=== PATIENT | female | born 1965 | race Caucasian/White ===

== ENCOUNTER → 2023-07-02 15:18 | Outpatient (REF) | payer BC, SELFPAY | LOC: HWRAD 15:18 | PROVIDERS: ATTENDING PHYSICIAN Family Medicine; REFERRING PHYSICIAN Internal Medicine Rheumatology | DX: Z12.31 Encounter for screening mammogram for malignant neoplasm of breast (principal); M81.0 Age-related osteoporosis without current pathological fracture | CPT/HCPCS: 77063; 77067; 77080 ==

== ENCOUNTER → 2023-10-07 15:43 | Outpatient (REF) | payer BC, SELFPAY | LOC: HWRAD 15:43 | PROVIDERS: ATTENDING PHYSICIAN Family Medicine | DX: R05.9 Cough, unspecified (principal) | CPT/HCPCS: 71046 ==

== ENCOUNTER → 2024-06-03 09:55 | Outpatient (REF) | payer BC, SELFPAY | LOC: HWRAD 09:55 | PROVIDERS: ATTENDING PHYSICIAN Family Medicine | DX: R06.00 Dyspnea, unspecified (principal) | CPT/HCPCS: 71046 ==

== ENCOUNTER 2024-10-15 01:24 | Emergency (ER) | payer BC, SELFPAY ==
[2024-10-15 01:27] VITALS: BP 122/78
[2024-10-15] MEDS: NSS 1000 IV (02:44)
[2024-10-15] MEDS: MORPHINE SULFATE 4 MG IV (02:52)
--- NOTE | 2024-10-15 02:53 | ED.GENMED ---
History of Present Illness
General
Chief Complaint: Abdominal Symptoms
Source: patient and spouse
Time Seen by Provider: 10/15/24 01:46
History of Present Illness
History of Present Illness:
This is a 59-year-old female who presents with left-sided abdominal pain. Patient states that earlier in the week she was treated with tizanidine for back spasms. She states she had woken up and had spasms in the right low back. She states that
over the last several weeks since taking a trip to [facility] she has had diarrhea followed by constipation followed by diarrhea and now feels constipated again. She feels some pressure like she has to have a bowel movement but has had pain. She
does report a history of diverticulitis. The patient is on medications for rheumatoid arthritis. states that she did have an outpatient CT scan. This was reviewed on the patient's phone which showed cholelithiasis but no other acute
process. Patient denies urinary symptoms. No melena or hematochezia. Has been trialing small dose of MiraLAX
Past History
Past History
ED Past Medical History: Hypercholesterolemia, Hyperthyroidism (Rheumatoid arthritis, kidney stones, irritable bowel syndrome, migraines, sciatica), Hypothyroidism, Psychiatric (anx/depression) and Other (Past history of kidney stones, history of
irritable bowel, migraine headache, sciatica, chronic low back pain)
ED Past Surgical History: Gynecological (Tubal ligation, endometrial ablation), Orthopedic (lumbar discectomy, lumbar spinal stimulator 06/28/2019), Tonsilectomy and Other (She also has a history of tubal ligation, and laser surgery of the cervix )
Patient has exhibited threatening behavior?: No
Social History
Tobacco: Non-smoker
Alcohol: None
Personal:
Living: with family
Employment: Employed
Family History
Family History: Other (Noncontributory)
Phy Exam
Physical Exam
Physical Exam:
CONSTITUTIONAL Patient alert and oriented to person, place and time. Well-appearing. Vital signs reviewed.
HEAD atraumatic, normocephalic.
EYES eyelids normal to inspection, Extraocular muscles intact, Conjunctiva normal, Sclera normal.
NECK normal range of motion, Trachea midline, no jugular venous distention.
RESPIRATORY CHEST No respiratory distress noted, Chest expansion equal, Bilateral breath sounds clear.
CARDIOVASCULAR regular rate and rhythm, Heart sounds normal.
ABDOMEN moderate left lower quadrant abdominal tenderness, Bowel sounds normal. No distention.
BACK normal inspection, no obvious deformities
UPPER EXTREMITY range of motion normal, Motor strength normal, no cyanosis, no edema.
LOWER EXTREMITY range of motion normal, Motor strength normal, no cyanosis, no edema.
NEURO Speech normal, No focal motor deficits, Jewett coma scale 15, Memory normal, Cranial Nerves intact to screening exam.
SKIN skin warm, dry, and normal in color.
Course
Orders/Labs/Results
Orders:
Orders
10/15/24 02:22
CT Abd/Pel (IV only)-DH only Urgent
Comment:
Reason For Exam: L abd pain
10/15/24 02:23
0.9% Sodium Chloride 1000 ml [Nss] 1,000 ml IV BOLUS
Morphine Sulfate 4 mg IV NOW STA
10/15/24 02:41
Complete Blood Count/With Diff Urgent
Comprehensive Metabolic Panel Urgent
10/15/24 02:56
Urinalysis Reflex To Culture Urgent
Date Specimen was Collected: 10/15/24
Time Specimen was Collected: 02:42
Urine Microscopic Reflex Cult Urgent
Abnormal Lab Results
10/15/24 10/15/24
02:41 02:56
WBC 13.1 H 10^3/uL
(4.8-10.8)
MPV 11.1 H fL
(7.4-10.4)
Abs Immat Gran (auto) 0.1 H 10^3/uL
(0-0.05)
Absolute Lymphs (auto) 5.3 H 10^3/uL
(1.2-3.4)
Absolute Monos (auto) 1.2 H 10^3/uL
(0.1-0.6)
BUN 4 L mg/dl
(7-17)
Glucose 114 H mg/dl
(70-99)
Total Bilirubin 1.6 H mg/dl
(0.2-1.3)
Urine Albumin (Reflex) 1+ A
(Neg - Trace)
10/15/24 02:41
10/15/24 02:41
Vital Signs
Initial and Last Documented VS:
Initial Vital Signs
Temp Pulse Resp BP Pulse Ox
99.5 F 94 16 122/78 97
10/15/24 01:27 10/15/24 01:27 10/15/24 01:27 10/15/24 01:27 10/15/24 01:27
Last Documented Vital Signs
Temp Pulse Resp BP Pulse Ox
99.5 F 94 16 124/70 95
10/15/24 01:27 10/15/24 01:27 10/15/24 01:27 10/15/24 04:13 10/15/24 04:45
MDM/Problems Addressed
Differential Diagnosis Includes:
Diverticulitis, colitis, constipation, Valstar
MDM/Problems Addressed:
Colitis
*Radiology
Radiology exam reviewed: radiology read reviewed
*Pulse Oximetry
Patient hypoxic: no
*Critical Care Note
Total Time (30-74mins, 75-104mins- exclusive of procedures): Not Applicable
Data Reviewed
Source: patient and spouse
Prescriptions/Medications Considered But Not Given:
Considered Levaquin and Flagyl if patient is allergic.
Patient Management
Escalation/DeEscalation of care consider admission/obs:
In light of her off-and-on diarrhea with recent travel and being slightly immunocompromise on rheumatoid treatment, cover with antibiotics. Okay for outpatient management.
ED Attending Note
-
Portions of this chart may have been created with voice recognition software.� Occasional wrong word or��sound alike� substitutions may have occurred due to the inherent limitations of voice recognition software.
Discharge Plan
Departure
Patient Disposition: Home (Routine Discharge)
Date of Disposition: 10/15/24
Time of Disposition: 05:15
Patient with high blood pressure during this ER visit?: No
Discharge Problem:
Colitis
Instructions: Colitis, Abdominal Pain
Prescriptions:
New
sulfamethoxazole-trimethoprim [Bactrim DS] 800-160 mg tablet
1 tab PO BID Qty: 20 0RF
metronidazole 500 mg tablet
500 mg PO TID Qty: 30 0RF
No Action
rosuvastatin 10 MG tablet
10 mg PO QPM
duloxetine 30 MG capsule,delayed release(DR/EC)
90 mg PO DAILY
Synthroid:
50 mcg PO DAILY
Patient Comments:
pt. does not know the dose.
tocilizumab [Actemra] 400 MG/20 ML solution
400 mg IV MONTHLY
Patient Comments:
on hold until PNA is resolved
albuterol sulfate [Proventil HFA] 90 MCG/PUFF HFA aerosol inhaler
1 puff inhalation Q4HPRN PRN (Reason: shortness of breath) Qty: 1 0RF
nystatin 5 ML suspension
5 ml PO QID Qty: 100 0RF
levalbuterol HCl 1.25 MG/3 ML solution for nebulization
1.25 mg inhalation R TID Qty: 1 0RF
levalbuterol HCl 1.25 MG/3 ML solution for nebulization
1.25 mg inhalation R Q6HPRN PRN (Reason: dyspnea, wheezing) Qty: 1 0RF
prednisone 10 MG tablet
10 mg PO DAILY Qty: 20 0RF
Rx Instructions:
4 tabs daily for 2 days, 3 tabs daily for 2 days, 2 tabs daily for 2 days, 1 tab daily for 2 days then stop.
oxycodone 5 MG tablet
5 mg PO Q4HPRN PRN (Reason: severe pain) Qty: 15 0RF
cyclobenzaprine 10 MG tablet
10 mg PO TIDPRN PRN (Reason: muscle spasms) Qty: 15 0RF
prednisone 10 MG tablet
10 mg PO .TAPER Qty: 30 0RF
Rx Instructions:
Take 40mg daily x3days, 30mg daily x3days,
20mg daily x3days, 10mg daily x3days.
prednisone 10 MG tablet
10 mg PO .TAPER Qty: 30 0RF
Rx Instructions:
Take 40mg daily x3days, 30mg daily x3days,
20mg daily x3days, 10mg daily x3days.
oxycodone 5 MG tablet
5 mg PO Q4HPRN PRN (Reason: pain) Qty: 10 0RF
oxycodone 5 MG tablet
5 mg PO Q4HPRN PRN (Reason: pain) Qty: 12 0RF
Referrals:
Tamara Real MD [Family Provider] -
Activity Restrictions/Additional Instructions:
Please see your doctor in the next 3 days for follow-up and reevaluation. If symptoms persist, follow-up with gastroenterology may be necessary. Return immediately for fevers, worsening pain, bloody stool or any other concerns
Interventions
Interventions:
*Risk Screen - Suicide Last Done: 10/15/24 01:27
*General Assessment Last Done: 10/15/24 02:59
*Neglect/Abuse Screening Last Done: 10/15/24 02:59
*ED- Fall Risk Assessment Last Done: 10/15/24 02:59
*ED COVID-19 Vaccine History Last Done: 10/15/24 02:59
HG-Itadpp-Xhduwyiqkx Assessment Last Done: 10/15/24 03:00
Discharge Date and Time
Print Language: ERITREAN
[2024-10-15 02:58] VITALS: BP 113/71
[2024-10-15 03:09] LABS: % Basophils 0.6 % (0-2); % Eosinophils 0.2 % (0-6); % Immature Granulocytes 0.5 % (0-0.5); % Lymphocytes 40.4 % (20.5-51.1); % Monocytes 9.2 % (1.7-9.3); % Neutrophils 49.1 % (42.2-75.2); Absolute Basophils 0.1 10^3/uL (0-0.2); Absolute Immature Granulocytes 0.1 10^3/uL (0-0.05); Absolute Lymphocytes 5.3 10^3/uL (1.2-3.4); Absolute Monocytes 1.2 10^3/uL (0.1-0.6); Absolute Neutrophils 6.4 10^3/uL (1.4-6.5); Hematocrit 44.3 % (37.0-47.0); Mean Corp Hgb Conc. 33.9 g/dL (33.0-37.0); Mean Corpuscular Hgb 30.9 pg (27.0-31.0); Mean Corpuscular Volume 91.3 fL (81.0-99.0); Mean Platelet Volume 11.1 fL (7.4-10.4); Nucleated Red Blood Cells % 0 %; Platelet Count 298 10^3/uL (130-400); Red Blood Cell Count 4.85 10^6/uL (4.20-5.40); Red Cell Dist. Width 11.9 % (11.5-14.5); White Blood Cell Count 13.1 10^3/uL (4.8-10.8)
[2024-10-15 03:12] LABS: Urine Albumin 1+ (Neg - Trace); Urine Bilirubin Negative (Negative); Urine Character Clear (Clear); Urine Color Yellow; Urine Glucose Negative (Negative); Urine Ketone Negative (Negative); Urine Leukocyte Negative (Negative); Urine Nitrite Negative (Negative); Urine Occult Blood Negative (Negative); Urine Urobilinogen Negative (Neg - 1+)
[2024-10-15 03:25] LABS: ALT (SGPT) 18 U/L (0-35); AST (SGOT) 26 U/L (14-36); Albumin 4.6 g/dl (3.5-5.0); Alkaline Phosphatase 68 U/L (38-126); Blood Urea Nitrogen 4 mg/dl (7-17); Calcium 9.5 mg/dl (8.4-10.2); Carbon Dioxide 27 mmol/L (22-30); Chloride 106 mmol/L (98-107); Glucose 114 mg/dl (70-99); Potassium 3.8 mmol/L (3.5-5.1); Sodium 142 mmol/L (135-145); Total Bilirubin 1.6 mg/dl (0.2-1.3); Total Protein 7.6 g/dl (6.3-8.2); eGFR > 60.00
[2024-10-15 03:34] LABS: Urine Squamous Cell >30 /LPF (Few)
[2024-10-15 03:35] LABS: Urine Red Blood Cell 0-2 /HPF (0-2)
[2024-10-15 04:13] VITALS: BP 124/70
[2024-10-15 05:00] VITALS: BP 104/65
== END 2024-10-15 05:44 | disposition home or self-care (01) ==
LOC: EMR 01:24
PROVIDERS: EMERGENCY PHYSICIAN Emergency Medicine; FAMILY PHYSICIAN Family Medicine
DX: K52.9 Noninfective gastroenteritis and colitis, unspecified (principal); M62.830 Muscle spasm of back; M06.9 Rheumatoid arthritis, unspecified; E78.00 Pure hypercholesterolemia, unspecified; E03.9 Hypothyroidism, unspecified; K58.9 Irritable bowel syndrome, unspecified; Z87.442 Personal history of urinary calculi
CPT/HCPCS: 99284; 74177; 80053; 81003; 81015; 85025; Q9967

== ENCOUNTER 2024-10-21 13:58 | Emergency (ER) | payer BC, SELFPAY ==
[2024-10-21 14:04] VITALS: BP 156/96
[2024-10-21 14:35] LABS: Hematocrit 42.4 % (37.0-47.0); Hemoglobin 14.3 g/dL (12.0-16.0); Mean Corp Hgb Conc. 33.7 g/dL (33.0-37.0); Mean Corpuscular Hgb 30.4 pg (27.0-31.0); Mean Corpuscular Volume 90.2 fL (81.0-99.0); Platelet Count 371 10^3/uL (130-400); Red Cell Dist. Width 11.7 % (11.5-14.5); White Blood Cell Count 9.8 10^3/uL (4.8-10.8)
[2024-10-21 14:51] LABS: Lactic Acid 1.1 mmol/L (0.7-2.0)
[2024-10-21 14:54] LABS: % Eosinophils 0.6 % (0-6); % Immature Granulocytes 0.3 % (0-0.5); % Lymphocytes 58.7 % (20.5-51.1); % Monocytes 8.7 % (1.7-9.3); % Neutrophils 30.7 % (42.2-75.2); Absolute Basophils 0.1 10^3/uL (0-0.2); Absolute Eosinophils 0.1 10^3/uL (0-0.7); Absolute Lymphocytes 5.8 10^3/uL (1.2-3.4); Absolute Monocytes 0.9 10^3/uL (0.1-0.6); Nucleated Red Blood Cells % 0 %
[2024-10-21 14:55] LABS: ALT (SGPT) 18 U/L (0-35); AST (SGOT) 30 U/L (14-36); Albumin 4.6 g/dl (3.5-5.0); Alkaline Phosphatase 73 U/L (38-126); Blood Urea Nitrogen 8 mg/dl (7-17); Carbon Dioxide 25 mmol/L (22-30); Chloride 105 mmol/L (98-107); Glucose 128 mg/dl (70-99); Lipase 57 U/L (23-300); Potassium 4.3 mmol/L (3.5-5.1); Sodium 139 mmol/L (135-145); Total Bilirubin 0.9 mg/dl (0.2-1.3); Total Protein 7.5 g/dl (6.3-8.2); eGFR > 60.00
--- NOTE | 2024-10-21 17:11 | ED.GENMED ---
History of Present Illness
General
Chief Complaint: Abdominal Pain
Source: patient
Exam Limitations: none
Time Seen by Provider: 10/21/24 16:58
Nursing documentation reviewed up to this point in time: agreed with
History of Present Illness
History of Present Illness:
Patient to ED with complaint of lower abd. pain. She was seen in ED 1 week ago for same. Dx with colitis and placed on flagyl and Bactrim DS. States pain continues to worsen. No fever/chills. +nausea, no diarrhea, no vomiting. Returned to ED
for worsening pain despite oral antibiotic therapy.
Past History
Past History
ED Past Medical History: Hypercholesterolemia, Hyperthyroidism (Rheumatoid arthritis, kidney stones, irritable bowel syndrome, migraines, sciatica), Hypothyroidism, Psychiatric (anx/depression) and Other (Past history of kidney stones, history of
irritable bowel, migraine headache, sciatica, chronic low back pain)
ED Past Surgical History: Gynecological (Tubal ligation, endometrial ablation), Orthopedic (lumbar discectomy, lumbar spinal stimulator 06/28/2019), Tonsilectomy and Other (She also has a history of tubal ligation, and laser surgery of the cervix )
Patient has exhibited threatening behavior?: No
Social History
Tobacco: Non-smoker
Alcohol: None
Personal:
Living: with family
Employment: Employed
Family History
Family History: Other (Noncontributory)
Review of Systems
Review of Systems
Allergies reviewed?: Yes
All Other Systems: ROS reviewed and negative except as documented in HPI and ROS
Constitutional: Reports no symptoms
EENT: Reports no symptoms
Respiratory: Reports no symptoms
Cardiac: Reports no symptoms
ABD/GI: Reports abdominal pain (bilateral lower abd. pain)
: Reports no symptoms
Musculoskeletal: Reports no symptoms
Skin: Reports no symptoms
Psychiatric: Reports no symptoms
Phy Exam
General Physical Exam
General Presentation: moderate distress
General age: appears stated age
General Skin: warm and dry
General Habitus: normal
General Mental: alert
Cardiovascular Exam
Cardiovascular Exam: regular rate/rhythm and no edema
Gastrointestinal Exam
Gastrointestinal Exam: normal bowel sounds, soft, no organomegaly, no pulsatile mass, non distended and no cva tenderness
Palpation: left upper quadrant: Minimal tenderness, left lower quadrant: Moderate tenderness, right upper quadrant: Minimal tenderness and right lower quadrant: Moderate tenderness
Musculoskeletal Exam
Musculoskeletal Exam: full ROM and neuro vasc intact
Skin Exam
Skin Exam: normal color, warm/dry and no rash
Psychiatric Exam
Psychiatric Exam: normal mood/affect
Course
Orders/Labs/Results
Orders:
Orders
10/21/24 14:15
Complete Blood Count/With Diff Urgent
Comprehensive Metabolic Panel Urgent
Lactic Acid Urgent
Lipase Urgent
Blood Culture Urgent
LIANE Source: Blood/Venous
Specimen Description:
10/21/24 17:08
HYDROmorphone [Dilaudid] 0.5 mg IV NOW STA
Ondansetron Injectable [Zofran] 4 mg IV NOW STA
10/21/24 17:09
0.9% Sodium Chloride 1000 ml [Nss] 1,000 ml IV BOLUS
Iohexol [Omnipaque] See Protocol PO NOW STA
10/21/24 17:10
CT Abd/pel W Iv And Oral Contr Urgent
Comment:
Reason For Exam: lower abd pain
10/21/24 18:13
Urinalysis Reflex To Culture Urgent
Date Specimen was Collected: 10/21/24
Time Specimen was Collected: 17:14
10/21/24 21:14
HYDROmorphone [Dilaudid] 0.5 mg IV NOW STA
Ondansetron Injectable [Zofran] 4 mg IV NOW STA
Abnormal Lab Results
10/21/24
14:15
MPV 11.0 H fL
(7.4-10.4)
Absolute Lymphs (auto) 5.8 H 10^3/uL
(1.2-3.4)
Absolute Monos (auto) 0.9 H 10^3/uL
(0.1-0.6)
Neutrophils % 30.7 L %
(42.2-75.2)
Lymphocytes % 58.7 H %
(20.5-51.1)
Glucose 128 H mg/dl
(70-99)
10/21/24 14:15
10/21/24 14:15
Vital Signs
Initial and Last Documented VS:
Initial Vital Signs
Temp Pulse Resp BP Pulse Ox
98.5 F 89 20 156/96 98
10/21/24 14:04 10/21/24 14:04 10/21/24 14:04 10/21/24 14:04 10/21/24 14:04
Last Documented Vital Signs
Temp Pulse Resp BP Pulse Ox
98.5 F 89 20 106/78 98
10/21/24 14:04 10/21/24 14:04 10/21/24 14:04 10/21/24 17:24 10/21/24 18:00
*Radiology
Radiology exam reviewed: radiology read reviewed
*Pulse Oximetry
Patient hypoxic: no
*Critical Care Note
Total Time (30-74mins, 75-104mins- exclusive of procedures): Not Applicable
Update Note
Update Note:
Patient to ED with complaint of ongoing abdominal pain. SHe was seen here last week for ssame. Abdominal CT revealed colitis. SHe was discharged home on po flagyl and bactrim. Reports complaince with meds. Ct tonight reveals improving colitis.
Labs are stable. No vomiting in ED. WIll discharge home, she will finish out antibiotics. Advised clear liquids x 24 hours and then advance as tolerated. SHe will follow closesly with PCP. Given instructions on s/s to return to ED and she is
agreeable to plan.
ED Attending Note
-
Portions of this chart may have been created with voice recognition software.� Occasional wrong word or��sound alike� substitutions may have occurred due to the inherent limitations of voice recognition software.
Discharge Plan
Departure
Patient Disposition: Home (Routine Discharge)
Date of Disposition: 10/21/24
Time of Disposition: 21:14
Patient with high blood pressure during this ER visit?: No
Condition: Good
Covid-19: Not Applicable
Discharge Problem:
Abdominal pain
Instructions: Clear Liquid Diet, Colitis
Prescriptions:
New
oxycodone 5 mg capsule
5 mg PO Q4H PRN (Reason: Pain) Qty: 12 0RF
No Action
rosuvastatin 10 MG tablet
10 mg PO QPM
duloxetine 30 MG capsule,delayed release(DR/EC)
90 mg PO DAILY
Synthroid:
50 mcg PO DAILY
Patient Comments:
pt. does not know the dose.
tocilizumab [Actemra] 400 MG/20 ML solution
400 mg IV MONTHLY
Patient Comments:
on hold until PNA is resolved
albuterol sulfate [Proventil HFA] 90 MCG/PUFF HFA aerosol inhaler
1 puff inhalation Q4HPRN PRN (Reason: shortness of breath) Qty: 1 0RF
nystatin 5 ML suspension
5 ml PO QID Qty: 100 0RF
levalbuterol HCl 1.25 MG/3 ML solution for nebulization
1.25 mg inhalation R TID Qty: 1 0RF
levalbuterol HCl 1.25 MG/3 ML solution for nebulization
1.25 mg inhalation R Q6HPRN PRN (Reason: dyspnea, wheezing) Qty: 1 0RF
prednisone 10 MG tablet
10 mg PO DAILY Qty: 20 0RF
Rx Instructions:
4 tabs daily for 2 days, 3 tabs daily for 2 days, 2 tabs daily for 2 days, 1 tab daily for 2 days then stop.
oxycodone 5 MG tablet
5 mg PO Q4HPRN PRN (Reason: severe pain) Qty: 15 0RF
cyclobenzaprine 10 MG tablet
10 mg PO TIDPRN PRN (Reason: muscle spasms) Qty: 15 0RF
prednisone 10 MG tablet
10 mg PO .TAPER Qty: 30 0RF
Rx Instructions:
Take 40mg daily x3days, 30mg daily x3days,
20mg daily x3days, 10mg daily x3days.
prednisone 10 MG tablet
10 mg PO .TAPER Qty: 30 0RF
Rx Instructions:
Take 40mg daily x3days, 30mg daily x3days,
20mg daily x3days, 10mg daily x3days.
oxycodone 5 MG tablet
5 mg PO Q4HPRN PRN (Reason: pain) Qty: 10 0RF
oxycodone 5 MG tablet
5 mg PO Q4HPRN PRN (Reason: pain) Qty: 12 0RF
sulfamethoxazole-trimethoprim [Bactrim DS] 800-160 mg tablet
1 tab PO BID Qty: 20 0RF
metronidazole 500 mg tablet
500 mg PO TID Qty: 30 0RF
Referrals:
Tamara Real MD [Family Provider, Family Practice] - Follow up in 2-3 days
Activity Restrictions/Additional Instructions:
REturn to the emergency department immediately for any changes in/worsening of your symptoms
Interventions
Interventions:
*Risk Screen - Suicide Last Done: 10/21/24 21:32
*General Assessment Last Done: 10/21/24 14:04
*Neglect/Abuse Screening Last Done: 10/21/24 16:18
*ED- Fall Risk Assessment Last Done: 10/21/24 16:18
*ED COVID-19 Vaccine History Last Done: 10/21/24 16:18
*Nursing Disposition Last Done: 10/21/24 21:40
TB-Gjrmva-Vkymyfsucx Assessment Last Done: 10/21/24 16:20
Discharge Date and Time
Discharge Date/Time: 10/21/24 21:41
Print Language: KHMER
[2024-10-21 17:19] VITALS: BMI 33.7
[2024-10-21] MEDS: OMNIPAQUE 50 ML PO (17:20)
[2024-10-21] MEDS: DILAUDID 0.5 MG IV ×2 (17:21→21:26)
[2024-10-21] MEDS: NSS 1000 IV (17:21)
[2024-10-21] MEDS: ZOFRAN 4 MG IV ×2 (17:21→21:26)
[2024-10-21 17:24] VITALS: BP 106/78
[2024-10-21 18:28] LABS: Urine Albumin Negative (Neg - Trace); Urine Bilirubin Negative (Negative); Urine Character Clear (Clear); Urine Color Yellow; Urine Glucose Negative (Negative); Urine Ketone Negative (Negative); Urine Leukocyte Negative (Negative); Urine Nitrite Negative (Negative); Urine Occult Blood Negative (Negative); Urine Urobilinogen Negative (Neg - 1+)
== END 2024-10-21 21:41 | disposition home or self-care (01) ==
LOC: EMR 13:58
PROVIDERS: Emergency Medicine; Nurse Practitioner; EMERGENCY PHYSICIAN Emergency Medicine; FAMILY PHYSICIAN Family Medicine
DX: R10.30 Lower abdominal pain, unspecified (principal)
CPT/HCPCS: 99285; 96374; 96375; 96376 ×2; 96361; 74177; 80053; 81003; 83605; 83690; 85025; 87040; Q9967

== ENCOUNTER → 2024-12-26 08:04 | Outpatient (REF) | payer BC, SELFPAY | LOC: WDC 08:04 | PROVIDERS: ATTENDING PHYSICIAN Family Medicine | DX: Z12.31 Encounter for screening mammogram for malignant neoplasm of breast (principal) | CPT/HCPCS: 77063; 77067 ==